=== PATIENT | female | born 1970 | race Caucasian/White ===

== ENCOUNTER 2024-02-12 12:50 | Emergency (ER) | payer MEDICAID, SELFPAY ==
[2024-02-12] VITALS (7 sets, daily range): BP systolic 122–164; BP diastolic 75–103; PULSE 89; TEMP 36.5; O2SAT 88–96
--- NOTE | 2024-02-12 13:00 | ED_ITS ---
HPI - Abdominal Pain General Chief Complaint: Abdominal Pain Stated Complaint: ABDOMINAL PAIN Time Seen by Provider: 02/12/24 12:59 Source: patient Mode of arrival: ambulance History of Present Illness HPI narrative: This patient is here complaining of abdominal pain. She said it started yesterday but has gotten worse this morning at about 9:00. She says she has not moved her bowels for 3 days. She states she has taken enemas and laxatives with no benefit. She says she has had at least 6 surgical procedures on her abdomen. She has had procedures done by at [facility] but her most recent procedure was done last May at the [facility]. 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 She states that she still has her appendix and her gallbladder to her knowledge. She does not know about her of ovaries. Related Data Home Medications ?Medication ?Instructions ?Recorded ?Confirmed amantadine HCl (bulk) ea miscellaneous 02/12/24 amlodipine 5 mg tablet mg 02/12/24 atorvastatin 40 mg tablet mg 02/12/24 cyclobenzaprine 10 mg tablet mg 02/12/24 levothyroxine 150 mcg tablet mcg 02/12/24 losartan 100 mg tablet mg 02/12/24 oxycodone-acetaminophen 5 mg-325 tab 02/12/24 mg tablet sennosides 8.6 mg tablet (senna) mg 02/12/24 Allergies Allergy/AdvReac Type Severity Reaction Status Date / Time No Known Drug Allergies Allergy Verified 02/12/24 12:56 Exam Narrative Exam Narrative: Awake alert upset tearful highly anxious. However she is afebrile. Her skin is warm and dry there is no evidence of pallor scleral icterus or anemia on her ENT examination. Her mucous membranes are moist and pink. Examination of the abdomen shows numerous numerous surgical incisions. There is however no guarding rebound rigidity or peritoneal findings. There is normal bowel sounds with no high-pitched tympany type sounding's. There is no tenderness to palpation of the groin or the bladder area. She has no respiratory distress no cough or congestion. Oximetry and respiratory rate are normal. Constitutional Vital Signs, click to edit/add: Last Vital Signs Temp 97.7 F 02/12/24 12:52 Pulse 89 02/12/24 12:52 Resp 20 02/12/24 12:52 BP 122/75 02/12/24 14:30 Pulse Ox 95 02/12/24 16:09 O2 Del Method Nasal Cannula 02/12/24 13:44 O2 Flow Rate 2 02/12/24 13:44 Course Vital Signs Vital signs: Vital Signs Temperature 97.7 F 02/12/24 12:52 Pulse Rate 89 02/12/24 12:52 Respiratory Rate 02/12/24 12:52 Blood Pressure 159/103 H 02/12/24 12:52 Pulse Oximetry 96 02/12/24 12:52 Oxygen Delivery Method Room Air 02/12/24 12:52 Temperature 97.7 F 02/12/24 12:52 Pulse Rate 89 02/12/24 12:52 Respiratory Rate 02/12/24 12:52 Blood Pressure 122/75 02/12/24 14:30 Pulse Oximetry 95 02/12/24 16:09 Oxygen Delivery Method Nasal Cannula 02/12/24 13:44 Oxygen Delivery Flow Rate 2 02/12/24 13:44 MDM - Abdominal Pain MDM Narrative Medical decision making narrative: Because of her history she is extremely susceptible to bowel obstruction so CT scan was ordered as well as routine blood testing IV fluids and medications to handle her discomfort and pain. Fortunately her CT scan does not show any bowel obstruction or acute findings. Her white blood cell count is normal. Urinalysis does not suggest UTI routine chemistries are essentially acceptable as well. She feels much better after treatment here in the ER. I do want to put her bowel at rest. I do not want her eating any solid food for at least 24 hours. She can follow-up here or follow-up with her family doctor if her symptoms would return she should come back to the ER Lab Data Labs: Lab Results 02/12/24 02/12/24 Range/Units 13:39 15:50 WBC 9.4 (4.0-11.0) 10^3/uL RBC 4.07 L (4.20-5.40) 10^6/uL Hgb 11.8 L (12.0-16.0) g/dL Hct 37.1 (36.0-48.0) % MCV 91.2 (81.0-99.0) fL MCH 29.0 (26.7-34.0) pg MCHC 31.8 (29.9-35.2) g/dL RDW 13.9 (11.0-15.0) % Plt Count 327 (150-450) 10^3/uL MPV 8.3 L (9.5-13.5) fL Neut % (Auto) 81.6 H (43.0-75.0) % Lymph % (Auto) 11.6 L (20.5-60.0) % Randall % (Auto) 5.3 (1.7-12.0) % Eos % (Auto) 0.7 L (0.9-7.0) % Baso % (Auto) 0.4 (0.2-2.0) % Neut # (Auto) 7.6 H (1.4-6.5) 10^3/uL Lymph # (Auto) 1.1 L (1.2-3.8) 10^3/uL Randall # (Auto) 0.5 (0.3-0.8) 10^3/uL Eos # (Auto) 0.1 (0.0-0.7) 10^3/uL Baso # (Auto) 0.0 (0.0-0.1) 10^3/uL Abs Immat Gran (auto) 0.04 H (0.00-0.03) 10^3/uL Imm/Tot Granulo (auto) 0.4 (0.0-0.5) % Sodium 140 (136-145) mmol/L Potassium 4.7 (3.5-5.1) mmol/L Chloride 104 (98-107) mmol/L Carbon Dioxide 28.4 (21.0-32.0) mmol/L Anion Gap 12.3 BUN 12.0 (7.0-18.0) mg/dL Creatinine 0.94 (0.55-1.02) mg/dL Est GFR ( Amer) >60 (>=60) Est GFR (Non-Af Amer) >60 (>=60) BUN/Creatinine Ratio 12.8 Glucose 115 H (74-106) mg/dL Lactate 0.9 (0.4-2.0) mmol/L Calcium 8.8 (8.5-10.1) mg/dL Total Bilirubin 0.3 (0.2-1.0) mg/dL AST 18 (15-37) U/L ALT 24 (14-59) U/L Alkaline Phosphatase 112 (46-116) U/L Troponin I High Sens 5.5 (4.0-51.3) pg/mL Total Protein 7.0 (6.4-8.2) g/dL Albumin 3.3 L (3.4-5.0) g/dL Globulin 3.7 g/dL Albumin/Globulin Ratio 0.9 Urine Color Lt. yellow (YELLOW) Urine Clarity Clear (CLEAR) Urine pH 6.0 (5.0-9.0) Ur Specific Ruth 1.020 (1.005-1.025) Urine Protein Negative (NEG/TRACE) mg/dL Urine Glucose (UA) Negative (NEGATIVE) mg/dL Urine Ketones Negative (NEGATIVE) mg/dL Urine Occult Blood Negative (NEGATIVE) Urine Nitrite Negative (NEGATIVE) Urine Bilirubin Negative (NEGATIVE) Urine Urobilinogen 0.2 (0.2-1.0) EU/dL Ur Leukocyte Esterase Negative (NEGATIVE) Discharge Plan Discharge Stand Alone Forms: Portal Instructions Chief Complaint: Abdominal Pain Clinical Impression: Abdominal pain Patient Disposition: Home, Self-Care Time of Disposition Decision: 16:52 Prescriptions / Home Meds: No Action cyclobenzaprine 10 mg tablet atorvastatin 40 mg tablet sennosides [senna] 8.6 mg tablet amantadine HCl (bulk) Powder MISCELLANEOUS amlodipine 5 mg tablet oxycodone-acetaminophen 5-325 mg tablet levothyroxine 150 mcg tablet losartan 100 mg tablet Print Language: Czech Additional Instructions: Clear fluids and small but frequent amounts for at least 24 hours, then slowly advancing diet. Return for fever or worse symptoms. May use Zofran for nausea Referrals: LETICIA WYATT [Primary Care Provider] - 1 week
--- NOTE | 2024-02-12 13:06 | CT_ITS ---
The [address] [address] Patient Name: BETO ROY MRN: [id number] date: 1970 Sex: F Assigned Patient Location: ER Current Patient Location: ER Accession/Order Number: [id number] Exam Date: 02/12/2024 15:03 Report Date: 02/12/2024 16:35 At the request of: ALEKSANDRA STEPHENSON Procedure: CT abdomen pelvis w con EXAM: CT abdomen pelvis w con HISTORY: Bowel obstruction nausea and vomiting, history of bowel obstruction. COMPARISON: CT 11/12/2022, 06/17/2022. TECHNIQUE: CT abdomen pelvis without contrast. FINDINGS: Chest: Densities right lung base most consistent with areas of atelectasis. Left lung base clear. No pleural effusion. Fatty infiltration of the liver without focal lesion. Fluid-filled gallbladder with tiny dependent calculus. No surrounding fluid or inflammation or gallbladder wall thickening. No biliary dilatation. Adrenal glands, pancreas, spleen unremarkable. No ascites or free fluid. No adenopathy. Normal size aorta Surgical clips from previous abdominal wall surgery, hernia repair. There is bowel wall thickening this area and subcutaneous fluid probable seroma. No enhancement or gas or other findings suspicious for abscess in this area. No evidence for recurrent hernia. . No bowel dilatation or evidence of obstruction. Normal diameter appendix right lower quadrant. Fat noted in the bowel wall distal small bowel and ascending colon is chronic likely residual of earlier inflammation. Enteroclysis sigmoid colon without dilatation. Calcification right lower quadrant adjacent to the ascending colon is old probably area of fat necrosis.. Pelvis: No mass or adenopathy or free fluid. No uterine or adnexal pathology. Normal fluid-filled bladder. MUSCULOSKELETAL: No suspicious bone lesion. CT/CT abdomen pelvis w con IMPRESSION: 1. No acute abdominal or pelvic pathology. 2. Prominent markings right lung base new from previous likely areas of atelectasis. 3. Interval repair of previous abdominal wall hernia without recurrence. No evidence of bowel dilatation or obstruction. 4. Subcutaneous fluid near the operative site suggesting stromal without findings suggesting abscess. 5. Cholelithiasis without CT evidence of cholecystitis Electronically authenticated by: FORTUNATO BROWN Date: 02/12/2024 16:35
[2024-02-12] MEDS: 0.9 % SODIUM CHLORIDE 1,000 ML 999 ML IV (13:26)
[2024-02-12] MEDS: HYDROMORPHONE HCL 1 MG/ML CARTRIDGE IVP ×2 (13:27→14:55)
[2024-02-12] MEDS: ONDANSETRON PF 4 MG/2 ML VIAL IV ×2 (13:27→14:55)
[2024-02-12 13:48] LABS: Basophils Percent Auto 0.4 % (0.2-2.0); Eosinophils Absolute Auto 0.1 10^3/uL (0.0-0.7); Eosinophils Percent Auto 0.7 % (0.9-7.0); Hematocrit 37.1 % (36.0-48.0); Hemoglobin 11.8 g/dL (12.0-16.0); Immature Granulocytes Abs Auto 0.04 10^3/uL (0.00-0.03); Immature Granulocytes Pct Auto 0.4 % (0.0-0.5); Lymphocytes Absolute Auto 1.1 10^3/uL (1.2-3.8); Lymphocytes Percent Auto 11.6 % (20.5-60.0); Mean Corpuscular HGB Conc 31.8 g/dL (29.9-35.2); Mean Corpuscular Volume 91.2 fL (81.0-99.0); Mean Platelet Volume 8.3 fL (9.5-13.5); Monocytes Absolute Auto 0.5 10^3/uL (0.3-0.8); Monocytes Percent Auto 5.3 % (1.7-12.0); Neutrophils Absolute Auto 7.6 10^3/uL (1.4-6.5); Neutrophils Percent Auto 81.6 % (43.0-75.0); Platelet Count 327 10^3/uL (150-450); Red Blood Count 4.07 10^6/uL (4.20-5.40); Red Cell Distribution Width 13.9 % (11.0-15.0); White Blood Count 9.4 10^3/uL (4.0-11.0)
[2024-02-12 14:05] LABS: Lactate/Lactic Acid 0.9 mmol/L (0.4-2.0)
[2024-02-12 14:12] LABS: Alanine Aminotransferase 24 U/L (14-59); Albumin Globulin Ratio 0.9; Albumin Level 3.3 g/dL (3.4-5.0); Alkaline Phosphatase 112 U/L (46-116); Anion Gap 12.3; Aspartate Amino Transferase 18 U/L (15-37); BUN Creatinine Ratio 12.8; Bilirubin Total 0.3 mg/dL (0.2-1.0); Calcium 8.8 mg/dL (8.5-10.1); Carbon Dioxide 28.4 mmol/L (21.0-32.0); Chloride 104 mmol/L (98-107); Estimated GFR (African America >60 (>=60); Estimated GFR (Non-African Ame >60 (>=60); Globulin 3.7 g/dL; Glucose 115 mg/dL (74-106); Potassium 4.7 mmol/L (3.5-5.1); Sodium 140 mmol/L (136-145); Troponin I High Sensitivity 5.5 pg/mL (4.0-51.3)
[2024-02-12 15:58] LABS: Bilirubin Urine NEGATIVE (NEGATIVE); Blood Urine NEGATIVE (NEGATIVE); Clarity Urine CLEAR (CLEAR); Color Urine LT. YELLOW (YELLOW); Glucose Urine UA NEGATIVE (NEGATIVE); Ketones Urine NEGATIVE (NEGATIVE); Leukocyte Esterase Urine NEGATIVE (NEGATIVE); Nitrite Urine NEGATIVE (NEGATIVE); Protein Urine NEGATIVE (NEG/TRACE); Urobilinogen Urine 0.2 EU/dL (0.2-1.0)
[2024-02-12 16:00] LABS: Urine Microscopic Indicated NO
== END 2024-02-12 16:58 | disposition home or self-care (01) ==
PROVIDERS: Emergency Provider Emergency Medicine Emergency Medical Services; PCP Internal Medicine
DX: R10.9 Unspecified abdominal pain (principal)
CPT/HCPCS: 36415; 74177; 80053; 81003; 83605; 84484; 85025; 96374; 96375; 96376; 99285; J1170; J2405; Q9967